=== PATIENT | female | born 1950 | race Caucasian/White ===

== ENCOUNTER 2016-08-07 07:40 | Day surgery (SDC) | payer OTHER ==
[~2016-08-07] VITALS: Ht 165.1 cm; Wt 77.0 kg
[~2016-08-07 07:40] MED LIST: Ceftin PO; DAILY VALUE1 EACH PO; Fioricet,Esgic,Repan PO; LOTREL 10/41 CAPSULE PO; LOZOL2.5 MG PO; Lexapro PO; PROAIR HFA8.5 GM IH; PROTONIX40 MG PO; PROVENTIL,2.5 MG/3 M IH; VENTOLIN HFA18 GM IH
[2016-08-07 08:15] VITALS: BP 120/67
[2016-08-07 12:41] VITALS: BP 100/55
[2016-08-07 13:43] VITALS: BP 119/57
[2016-08-07 15:41] VITALS: BP 111/55
[2016-08-07 16:13] VITALS: BP 119/58
== END 2016-08-07 16:18 | disposition home or self-care (01) ==
LOC: SDC 07:40
DX: M75.31 Calcific tendinitis of right shoulder (principal); M19.011 Primary osteoarthritis, right shoulder; J44.9 Chronic obstructive pulmonary disease, unspecified; K22.70 Barrett's esophagus without dysplasia; I10 Essential (primary) hypertension; E78.5 Hyperlipidemia, unspecified; Z87.891 Personal history of nicotine dependence; Z88.2 Allergy status to sulfonamides; Z88.8 Allergy status to other drugs, medicaments and biological substances; Z91.041 Radiographic dye allergy status
CPT/HCPCS: J0330; J0690; J1100; J1170; J2250; J2405; J2710; J2795; J3010